=== PATIENT | female | born 1970 | race Hispanic/Latino ===

== ENCOUNTER → 2019-08-03 | Day surgery (SDC) | payer OTHER ==
[~2019-08-03] MED LIST: ASPIR 8181 MG PO; CARVEDILOL25 MG PO; CRESTOR10 MG PO; FENTANYL CITRATE/PF 100MCG/2 ML INJ ONE; FLECAINIDE ACE100 MG PO; FOLIC ACID1 MG PO; HYDROCHLOROTHIA25 MG PO; IBUPROFEN400 MG PO; LOSARTAN POTAS100 MG PO; METHOTREXATE2.5 MG PO; MIDAZOLAM HCL 2 MG/2 ML VIAL ONE; PROPOFOL IV EMULSION 10 MG/ML 50 ML VIAL ONE; SERTRALINE HCL100 MG PO; ULTRAM50 MG PO
--- OUTSIDE RECORDS SUMMARY | 2019-08-03 07:04 | XMS REPORT ---
Author Author [facility] Organization [facility] Address Unknown Phone Unavailable Care Team Providers Care Requirements Engineer Name Role Phone Unavailable Unavailable Payers Payer Name Policy Type Policy Number Effective Date Expiration Date Problems This patient has no known problems. Allergies, Adverse Reactions, Alerts Allergy Name Allergy Type Status Severity Reaction(s) Onset Date Inactive Date Treating Clinician Comments No Known Allergies DA Active U 2015-09-05 00:00:00 Medications This patient has no known medications. Results Test Description Test Time Test Comments Text Results Atomic Results Result Comments CR - XRAY KNEE XR 3 VIEWS LT 2018-06-23 11:02:57 CLINICAL INDICATION: M25.562 Pain in left knee.FINDINGS:COMPARISON: None.There is very mild medial joint space narrowing. Lateral and patellofemoral joint spaces are maintained. Tiny marginal osteophytes are present medially.There are no intra-articular abnormalities.There are no fractures or destructive lesions.Soft tissues are normal.IMPRESSION:Mild osteoarthritis of the medial compartment, left knee.
--- OUTSIDE RECORDS SUMMARY | 2019-08-03 07:04 | XMS REPORT | Clinical Summary ---
Author Author [facility] Address Unknown Phone Unavailable Care Team Providers Care Armed Security Guard Name Role Phone Griffin Marrero PCP Allergies No Known Allergies Medications End Date Status Medication Sig Dispensed Refills Start Date Active losartan (COZAAR) 100 MG Take 25 mg by 0 tablet mouth daily. Active carvedilol (COREG CR) 20 Take 20 mg by 0 MG 24 hr capsule mouth daily. Active verapamil (CALAN) 40 MG Take 40 mg by 0 tablet mouth nightly. Active meloxicam (MOBIC) 15 MG Take 15 mg by 0 tablet mouth daily. Active methotrexate, PF, 10 Inject 10 mg 0 mg/0.2 mL AtIn subcutaneousl y every 7 days Not sure about the dose.last dose last Wednesday. . Active sertraline (ZOLOFT) 50 MG Take 50 mg by 0 tablet mouth nightly. Active Problems Problem Noted Date Chest pain, unspecified type 10/27/2016 Family History Medical History Relation Name Comments Cancer Father Hypertension Father Hypertension Mother Relation Name Status Comments Father Mother Social History Date Tobacco Use Types Packs/Day Years Used Never Smoker Alcohol Use Drinks/Week oz/Week Comments No Sex Assigned at Date Recorded Not on file Industry Job Start Date Occupation Not on file Not on file Not on file Travel End Travel History Travel Start No recent travel history available. Last Filed Vital Signs Not on file Plan of Treatment Not on file Results Not on fileafter 08/02/2018 Insurance Payer Benefit Subscriber ID Type Phone Address Plan / Group [employer] - [employer] HMO xxxxxxxxx HMO/POS POS QPOS Advance Directives For more information, please contact: [facility] [address] [place] [address] Date Inactivated Comments Code Status Date Activated 10/28/2016 3:16 PM Full Code 10/28/2016 12:39 AM This code status was determined by: Patient
[2019-08-03 10:45] VITALS: BP 144/78
== END | disposition home or self-care (01) ==
LOC: OR 06:54
PROVIDERS: ATTEND Internal Medicine Gastroenterology
DX: Z12.11 Encounter for screening for malignant neoplasm of colon (principal); D12.5 Benign neoplasm of sigmoid colon; K64.8 Other hemorrhoids; Z71.3 Dietary counseling and surveillance; I10 Essential (primary) hypertension; E66.01 Morbid (severe) obesity due to excess calories; G47.33 Obstructive sleep apnea (adult) (pediatric); J45.909 Unspecified asthma, uncomplicated; Z01.810 Encounter for preprocedural cardiovascular examination; Z79.82 Long term (current) use of aspirin; Z68.43 Body mass index [BMI] 50.0-59.9, adult
CPT/HCPCS: 45385; 81025; 93005; J2250; J2704; J3010